=== PATIENT | female | born 1990 | race Two or more races ===

== ENCOUNTER 2018-01-30 03:09 | Inpatient (IN) | payer MEDICAID, OTHER ==
[~2018-01-30] VITALS: Ht 160 cm; Wt 77.1 kg
[2018-01-30] MEDS ORDERED: LACT. RINGERS/OXYTOCIN 20UNITS 1,000 ML IV SCH (03:20)
[2018-01-30] MEDS ORDERED: LACTATED RINGER'S 1,000 ML IV SCH (03:20)
[2018-01-30] MEDS ORDERED: PENICILLIN G POT 5MIL/D5 50ML 50 ML IV ONE ×2 (03:25→03:30)
[2018-01-30] MEDS ORDERED: CARBOPROST TROMETHAMINE 250 MCG/1ML VIAL IM PRN (03:30)
[2018-01-30] MEDS ORDERED: NALBUPHINE HCL 10 MG/1ml INJECTION IV PRN (03:30)
[2018-01-30] MEDS ORDERED: METHYLERGONOVINE MALEATE 0.2 MG/ML AMP IM PRN (03:30)
[2018-01-30] MEDS ORDERED: DERMOPLAST 60ML BOTTLE TOP PRN (03:30)
[2018-01-30] MEDS ORDERED: PHISODERM TOP SOLN 240ML BTL TOP PRN (03:30)
[2018-01-30] MEDS ORDERED: WITCH HAZEL-GLYCERIN PAD TOP PRN (03:30)
[2018-01-30] MEDS ORDERED: LIDOCAINE 2% (LOCAL ANESTH.) PF 5ml SDV ID ONE (03:30)
[2018-01-30 04:05] LABS: Basophils # (auto) 0.1 uL; Basophils % (auto) 0.6 % (0.0-2.0); Eosinophils # (auto) 0.2 uL; Eosinophils % (auto) 1.1 % (0.0-7.0); Hematocrit 37.6 % (36.0-46.0); Hemoglobin 12.4 g/dL (12.2-16.2); Lymphocytes # (auto) 2.6 uL; Lymphocytes % (auto) 18.9 % (10.0-50.0); Mean Corpuscular Hemoglobin 29.1 pg (28.0-32.0); Mean Corpuscular Hgb Conc. 33.1 g/dL (32.0-36.0); Mean Corpuscular Volume 88.2 fL (80.0-100.0); Monocytes # (auto) 0.8 uL; Monocytes % (auto) 5.8 % (0.0-12.0); Neutrophils # (auto) 10.2 uL; Neutrophils % (auto) 73.6 % (37.0-80.0); Platelet Count (auto) 194 10^3/uL (140-450); Red Blood Cells 4.27 10^6/uL (4.0-5.20); Red Cell Distribution Width 15.4 % (11.8-14.3); White Blood Cell 13.8 10^3/uL (4.4-10.8)
[2018-01-30 04:21] LABS: INR 0.9 (0.9-1.15); Partial Thromboplastin Time 26.7 sec (23.78-33.04); Prothrombin Time 9.7 sec (9.27-12.13)
[2018-01-30 04:24] LABS: Albumin 2.8 g/dL (3.4-5.0); Potassium 3.5 mmol/L (3.5-5.1)
[2018-01-30 04:26] LABS: Alcohol, Urine < 3.0 mg/dL (0-5); Amphetamine Screen, Urine NEGATIVE (NEGATIVE); Barbiturate Scree,Urine NEGATIVE (NEGATIVE); Benzodiazephine Screen, Urine NEGATIVE (NEGATIVE); Cannabinoid Screen, Urine NEGATIVE (NEGATIVE); Cocaine Screen, Urine NEGATIVE (NEGATIVE); Opiate Scree,Urine NEGATIVE (NEGATIVE); Phencyclidine Screen, Urine NEGATIVE (NEGATIVE)
[2018-01-30 04:29] LABS: BUN/Creatinine Ratio 8.6; Bilirubin, Total 0.4 mg/dL (0.2-1.0); Total Protein 7.1 g/dL (6.4-8.2)
[2018-01-30 05:37] LABS: Urine Bacteria MANY /hpf (None Seen); Urine Blood Negative /uL (Negative); Urine Hyaline Cast FEW /lpf (0 - 2); Urine Mucus FEW (None Seen); Urine Specific Gravity 1.019 (1.001-1.035); Urine WBC 6 /hpf (0 - 5)
[2018-01-30] MEDS ORDERED: ACETAMINOPHEN 325 MG TAB PO PRN (05:45)
[2018-01-30 06:54] VITALS: BP 106/60
[2018-01-30] MEDS ORDERED: PENICILLIN G POTASSIUM 2,500,000 UNITS in D5W 5% 50 ML IV SCH (07:30)
[2018-01-30 11:00] VITALS: BP 100/57
[2018-01-30 12:30] VITALS: BP 106/55
[2018-01-30 15:00] VITALS: BP 108/55
[2018-01-30 19:15] VITALS: BP 109/56
[2018-01-30] MEDS: IBUPROFEN 600 MG TAB PO PRN (19:15)
[2018-01-30 22:57] VITALS: BP 111/57
[2018-01-31 03:00] VITALS: BP 111/53
[2018-01-31] MEDS: IBUPROFEN 600 MG TAB PO PRN ×2 (05:46→17:38)
[2018-01-31 06:06] LABS: RPR Non Reactive (Non Reactive)
[2018-01-31 07:00] VITALS: BP 104/54
[2018-01-31] MEDS ORDERED: TETANUS-DIPTH-ACEL PERTUSSIS 0.5ML SYRG IM ONE (08:00)
[2018-01-31] MEDS ORDERED: INFLUENZA QUAD 2018-2019 0.5 ML SYRG IM ONE (08:00)
[2018-01-31] MEDS ORDERED: PREN-96 PO (08:43)
[2018-01-31] MEDS ORDERED: DOCUSATE CALCIUM 240 MG CAP PO SCH (10:00)
[2018-01-31 11:10] VITALS: BP 100/56
[2018-01-31 15:10] VITALS: BP 109/58
[2018-01-31 23:00] VITALS: BP 108/55
[2018-02-01] MEDS: IBUPROFEN 600 MG TAB PO PRN (02:56)
[2018-02-01 02:59] VITALS: BP 125/59
[2018-02-01 06:34] VITALS: BP 102/51
== END 2018-02-01 09:25 | disposition home or self-care (01) | DRG 560 ==
LOC: OBSVTOIN 03:09 → LDRP 03:09
PROVIDERS: ADMIT Obstetrics & Gynecology; ATTEND Obstetrics & Gynecology
PROC: 0HQ9XZZ Repair Perineum Skin, External Approach (ICD-10-PCS; principal; 2018-01-30)
PROC: 10E0XZZ Delivery of Products of Conception, External Approach (ICD-10-PCS; 2018-01-30)
DX: O70.0 First degree perineal laceration during delivery (principal); Z23 Encounter for immunization; Z37.0 Single live birth; Z3A.37 37 weeks gestation of pregnancy
CPT/HCPCS: 36415; 59025; 59409; 76805; 80053; 80307; 81001; 85025; 85610; 85730; 86592; 86703; 86762; 86850; 86900; 86901; 87340; 90674; 90715; 96361; 96365; 96372; G0378; J2001; J2540; J2590; J7060